=== PATIENT | female | born 1970 | race Two or more races ===

== ENCOUNTER 2019-12-11 05:17 | Day surgery (SDC) | payer OTHER ==
[~2019-12-11 05:17] MED LIST: LOSARTAN-HCTZ1 EACH PO
[2019-12-11] MEDS ORDERED: NEURONTIN300 MG PO (09:21)
[2019-12-11] MEDS ORDERED: PERCOCET 5-3251 EACH PO (09:21)
[2019-12-11] MEDS ORDERED: COLACE100 MG PO (09:21)
== END 2019-12-11 17:25 | disposition home or self-care (01) ==
LOC: CIR.AMB 05:17 → AMB-ENDOS 10:00 → CIR.AMB 10:00
DX: K64.8 Other hemorrhoids (principal)

== ENCOUNTER 2020-04-25 09:00 | Day surgery (SDC) | payer OTHER ==
[~2020-04-25 09:00] MED LIST changes: +COLACE100 MG PO; +NEURONTIN300 MG PO; +PERCOCET 5-3251 EACH PO
== END 2020-04-25 14:40 | disposition home or self-care (01) ==
LOC: AMB-ENDOS 09:00
PROVIDERS: ATTEND Surgery
DX: K62.89 Other specified diseases of anus and rectum (principal); K64.8 Other hemorrhoids